=== PATIENT | male | born 2000 | race Caucasian/White ===

== ENCOUNTER 2022-10-25 17:12 | Emergency (ER) | payer BC, OTHER ==
[2022-10-25] MEDS ORDERED: Sodium Chloride 0.9% 10 ML Syringe FLUSH PRN (17:33)
[2022-10-25] MEDS ORDERED: HYDROmorphone 0.5 MG/0.5 ML Syringe IVPUSH ONE (17:33)
[2022-10-25] MEDS ORDERED: Propofol 200 MG/20 ML SDV IVPUSH ONE (17:51)
== END 2022-10-25 19:07 | disposition home or self-care (01) ==
LOC: JD.ED 17:12
DX: S43.015A Anterior dislocation of left humerus, initial encounter (principal); M21.922 Unspecified acquired deformity of left upper arm; Y93.64 Activity, baseball
CPT/HCPCS: 23650; 73020; 73030; 96374; 99283; J1170; J2704; J3490; 99284

== ENCOUNTER 2023-02-25 18:31 | Emergency (ER) | payer BC ==
[2023-02-25] MEDS ORDERED: HYDROmorphone 0.5 MG/0.5 ML Syringe IVPUSH ONE (19:19)
[2023-02-25] MEDS ORDERED: Ondansetron 4 MG/2 ML SDV IVPUSH ONE (19:19)
[2023-02-25] MEDS ORDERED: Bupivacaine 0.5% 30 ML SDV INJECT ONE (20:39)
[2023-02-25] MEDS ORDERED: Bupivacaine 0.5% 10 ML SDV ONE (20:42)
== END 2023-02-25 22:22 | disposition home or self-care (01) ==
LOC: JD.ED 18:31
DX: S43.005A Unspecified dislocation of left shoulder joint, initial encounter (principal); S42.292A Other displaced fracture of upper end of left humerus, initial encounter for closed fracture; X58.XXXA Exposure to other specified factors, initial encounter; Y93.68 Activity, volleyball (beach) (court)
CPT/HCPCS: 23650; 73030; 96374; 96375; 99283; J1170; J2405; J3490; 23655; 64415; 99284